=== PATIENT | female | born 1970 | race Caucasian/White ===

== ENCOUNTER 2020-04-03 02:33 | Emergency (ER) | payer SELFPAY ==
[2020-04-03 03:02] LABS: Bilirubin Negative (Negative); Blood, Urine Negative (Negative); Clarity Clear (Clear); Glucose, Urine (Dipstick) Normal (Negative); Leukocyte 25 Leu/uL (Negative); Nitrite Negative (Negative); Protein, Urine (Dipstick) 30 mg/dL (Neg-Trace); Squamous Epithelial 0-3 HPF (0-3); Urobilinogen Normal mg/dL (Less than 2)
[2020-04-03 03:03] LABS: Bacteria/HPF 1+ HPF (None Seen)
[2020-04-03 03:16] LABS: Mean Corpuscular HGB CONC 34.4 g/dL (32.0-36.0); Mean Corpuscular Hemoglobin 31.9 pg (27.0-31.0); Mean Corpuscular Volume 92.6 fL (78.0-98.0); RBC Distribution Width 12.8 % (11.5-14.5); Red Blood Cell (RBC) Count 3.14 mill/uL (4.20-5.40); White Blood Cell (WBC) Count 5.5 thou/uL (4.8-10.8)
[2020-04-03 03:29] LABS: #Eosinphils 0.1 thou/uL (0.0-0.7); #Lymphocytes 0.5 thou/uL (1.20-3.40); #Monocytes 0.6 thou/uL (0.11-0.59); #Neutrophils 4.2 thou/uL (1.40-6.50); %Basophils 0.4 % (0.0-1.0); %Eosinophils 2.4 % (0.0-10.0); %Lymphocytes 8.9 % (21.0-51.0); %Monocytes 10.6 % (0.0-10.0); %Neutrophils 77.6 % (42.0-75.0); Mean Platelet Volume 9.1 fL (7.4-10.4); Platelet Count 44 thou/uL (130-400); Platelet Morphology Comment Appears Decreased
[2020-04-03 03:34] LABS: ALT (SGPT) 22 U/L (8-55); AST (SGOT) 14 U/L (5-34); Albumin 2.9 g/dL (3.5-5.0); Alkaline Phosphatase 72 U/L (40-110); Anion Gap 12 mmol/L (10-20); BUN (Urea Nitrogen) 17 mg/dL (7.0-18.7); Bilirubin, Total 0.9 mg/dL (0.2-1.2); Calc. Creatinine Clearance 0 mL/min (70-130); Carbon Dioxide 21 mmol/L (22-29); Chloride 106 mmol/L (98-107); Estimated GFR-MDRD 48; Glucose 104 mg/dL (70-105); Potassium 3.5 mmol/L (3.5-5.1); Protein, Total 5.9 g/dL (6.0-8.3); Sodium 135 mmol/L (136-145)
--- NOTE | 2020-04-03 07:26 | CT ---
CT OF THE ABDOMEN AND PELVIS WITHOUT IV CONTRAST: INDICATION: A 49-year-old female with left-sided flank pain and history of urinary tract infection. FINDINGS: There are small bilateral pleural effusions, left greater than right, with bibasilar atelectasis. There are numerous varicosities within the paraesophageal region as well as within the upper abdomen. Unopacified spleen is enlarged measuring 17.2 cm. There are numerous, suspected, mixed density cystic abnormalities involving both kidneys likely refle ctive of underlying adult polycystic kidney disease. No rajni hydronephrosis is evident. There is a small amount of fluid within the left perinephric region. The unopacified liver measures 16 cm in length. There are mild vascular calcifications involving the abdominal vasculature. There is a fat-containing supraumbilical abdominal wall hernia with a small amount of reticulation in volving the herniated back. The hernia mouth measures approximately 2.6 cm. There is a normal appendix in the right lower quadrant. There is a mild amount of retained stool wit hin the colon. There is some fluid density seen within the right hemicolon. There is mild free flui d present within the right lower quadrant of the abdomen. There is mild anasarca. Small bowel is pr edominantly fluid-filled but nondilated. No definite acute osseous abnormality is evident. IMPRESSION: 1. Numerous hypodense and hyperdense suspected cystic abnormality involving both kidneys likely rela amy to adult polycystic renal disease. No rajni hydronephrosis is grossly evident on this noncontras t exam. There is edematous change seen within the left perinephric region, and given the history of prior UTI, a component of a left-sided pyelonephritis cannot be excluded. Recommend correlation with patient's current urinary laboratories. 2. Small bilateral pleural effusions with mild ascites and anasarca. 3. Nonspecific splenomegaly with numerous splenic and paraesophageal varicosities. 4. Vascular calcifications involving the abdominopelvic vasculature. 5. Fat-containing supraumbilical abdominal wall hernia within the midline with associated fat. A sm all amount of fluid is seen within the hernia sac likely from the patient's mild ascites. 6. Normal appendix. POS: BH
--- NOTE | 2020-04-03 07:58 | RAD ---
RADIOGRAPH CHEST 1 VIEW: DATE: 04/03/2020 HISTORY: 49-year-old female with dyspnea FINDINGS: The thoracic aorta is tortuous and ectatic. There is no evidence of airspace density, pulmonary edema , cardiomegaly, or pneumothorax. The lateral costophrenic angles are not effaced. IMPRESSION: 1) No acute pulmonary findings. 2) ectasia of thoracic aorta.
== END 2020-04-03 05:47 | disposition home or self-care (01) ==
LOC: ERS 02:33
DX: N39.0 Urinary tract infection, site not specified (principal); I10 Essential (primary) hypertension; J44.9 Chronic obstructive pulmonary disease, unspecified; K21.9 Gastro-esophageal reflux disease without esophagitis; D64.9 Anemia, unspecified; F41.9 Anxiety disorder, unspecified; F31.9 Bipolar disorder, unspecified; Z87.891 Personal history of nicotine dependence; Z79.899 Other long term (current) drug therapy
CPT/HCPCS: 36415; 71045; 74176; 80053; 81003; 81015; 83605; 85025